=== PATIENT | female | born 1995 | race Caucasian/White ===

== ENCOUNTER 2023-06-13 04:10 | Day surgery (SDC) | payer OTHER ==
[2023-06-11 15:23] VITALS: BMI 31.6
[2023-06-13] MEDS ORDERED: ACETAMINOPHEN INJECTION 100 ML IVPB ONE (07:43)
[2023-06-13] MEDS ORDERED: ePHEDrine SULFATE 50 MG/1 ML AMPULE ONE (07:53)
[2023-06-13] MEDS ORDERED: ONDANSETRON 4 MG/2 ML VIAL ONE (07:54)
[2023-06-13] MEDS ORDERED: LIDOCAINE HCL/PF 2% SDV 5ML VIAL ONE (07:54)
[2023-06-13] MEDS ORDERED: KETOROLAC TROMETHAMINE 30 MG/1 ML VIAL ONE (07:54)
[2023-06-13] MEDS ORDERED: DEXAMETHASONE SOD PHOSPHATE 4 MG/1 ML VIAL ONE (07:54)
[2023-06-13] MEDS ORDERED: MIDAZOLAM HCL 2 MG/2 ML SINGLE DOSE VIAL ONE (08:03)
[2023-06-13] MEDS: ceFAZolin SODIUM 1 GM VIAL IVPB ONE (08:18)
[2023-06-13] MEDS ORDERED: ONDANSETRON 4 MG/2 ML VIAL IVPUSH PRN ×2 (08:39→08:50)
[2023-06-13] MEDS ORDERED: oxyCODONE HCL 5 MG TABLET PO PRN ×2 (08:39→08:50)
[2023-06-13] MEDS ORDERED: LACTATED RINGERS SOLUTION 1,000 ML IV SCH (08:45)
[2023-06-13] MEDS ORDERED: IBUPROFEN 600 MG TABLET (FP) PO PRN (08:50)
[2023-06-13] MEDS ORDERED: IBUPROFEN 800 MG/8 ML IJ IVPB PRN (08:50)
[2023-06-13] MEDS ORDERED: ELECTROLYTE-148 SOLN 1,000 ML IV SCH (09:00)
[2023-06-13 09:23] VITALS: TEMP 97.1
[2023-06-13 09:37] VITALS: RESP 20
[2023-06-13 10:26] VITALS: BP 118/71; PULSE 59
== END 2023-06-13 10:10 | disposition home or self-care (01) ==
LOC: JASU-SURG 04:10
PROVIDERS: ATTEND Obstetrics & Gynecology
PROC: 10D17ZZ Extraction of Products of Conception, Retained, Via Natural or Artificial Opening (ICD-10-PCS; principal; 2023-06-13 08:00)
DX: O07.39 Failed attempted termination of pregnancy with other complications (principal)
CPT/HCPCS: 88305-TC; 94760; J0131